=== PATIENT | female | born 1955 | race African-American/Black ===

== ENCOUNTER → 2019-08-20 | Outpatient (CLI) | payer MEDICARE ==
--- NOTE | 2019-08-20 17:40 | RAD ---
DATE: 08/20/2019 EXAM: MAMMO STEVEN SCREENING BILATERAL HISTORY: Routine screening COMPARISON: 09/26/2017, 06/09/2016, 12/26/2014 mammographic exams performed at an outside facility This study was interpreted with the benefit of Computerized Aided Detection (CAD). Breast Density: SCATTERED The breast parenchyma shows scattered fibroglandular densities. Breast parenchyma level B. FINDINGS: No suspicious calcifications, masses, or distortion. Small masses are suggested but stable. Benign calcifications are stable. IMPRESSION: Stable BI-RADS CATEGORY: 1 NEGATIVE RECOMMENDED FOLLOW-UP: 12M 12 MONTH FOLLOW-UP PQRS compliance statement: Patient information was entered into a reminder system with a target due date for the next mammogram. Mammography is a sensitive method for finding small breast cancers, but it does not detect them all and is not a substitute for careful clinical examination. A negative mammogram does not negate a clinically suspicious finding and should not result in delay in biopsying a clinically suspicious abnormality. "Our facility is accredited by the [employer]ammography [employer]."
== END | disposition home or self-care (01) ==
LOC: MAMMO 07:47
PROVIDERS: ATTEND Family Medicine
DX: Z12.31 Encounter for screening mammogram for malignant neoplasm of breast (principal); N64.89 Other specified disorders of breast
CPT/HCPCS: 77063; 77067

== ENCOUNTER 2019-09-13 08:00 | Emergency (ER) | payer MEDICARE ==
[~2019-09-13] VITALS: Ht 162.6 cm; Wt 77.0 kg
--- NOTE | 2019-09-13 08:37 | PHYS DOC ---
Past Medical History Past Medical History: No Pertinent History Past Surgical History: Appendectomy, Hysterectomy, Other Additional Past Surgical Histo: SMALL INTESTINE, R SHOULDER, Alcohol Use: Heavy Additional Information: DRINKS ABOUT A 6 PACK TO 12 PACK ON A GOOD DAY. PT REPORTS SHE DRINKS BEER DAILY. Adult General Chief Complaint Chief Complaint: MECHANICAL FALL HPI HPI Patient is a 64 year old female who presented to ER today for evaluation of headache after she fell down and hit her head on hard wood floor about 5 days ago. She denies any loss of consciousness. Patient denies any neck pain, no extremity pain, no back pain, no shoulder pain. He denies any nausea vomiting. She denies any pelvic pain. Patient called her doctor today about it who told her to come to ER for evaluation. All other ROS is negative unless otherwise noted in HPI Review of Systems Review of Systems See above Current Medications Current Medications Current Medications Medications (Trade) Dose Ordered Sig/Leilani Start Time Stop Time Status Last Admin Dose Admin Acetaminophen (Tylenol) 1,000 mg 1X ONCE 09/13/19 09:30 09/13/19 09:31 DC 09/13/19 10:08 1,000 MG Ibuprofen (Motrin) 800 mg 1X ONCE 09/13/19 09:30 09/13/19 09:31 DC 09/13/19 10:08 800 MG Allergies Allergies Allergies Coded Allergies Type Severity Reaction Last Updated Verified No Known Drug Allergies 09/13/19 No Physical Exam Physical Exam See above Constitutional: Well developed, well nourished, no acute distress, non-toxic appearance. [] HENT: Normocephalic, atraumatic, bilateral external ears normal, oropharynx moist, no oral exudates, nose normal. [] Eyes: PERRLA, EOMI, conjunctiva normal, no discharge. [] Neck: Normal range of motion, no tenderness, supple, no stridor. [] Cardiovascular:Heart rate regular rhythm, no murmur [] Lungs & Thorax: Bilateral breath sounds clear to auscultation [] Abdomen: Bowel sounds normal, soft, no tenderness, no masses, no pulsatile masses. [] Skin: Warm, dry, no erythema, no rash. [] Back: No tenderness, no CVA tenderness. [] Extremities: No tenderness, no cyanosis, no clubbing, ROM intact, no edema. [] Neurologic: Alert and oriented X 3, normal motor function, normal sensory function, no focal deficits noted. [] Psychologic: Affect normal, judgement normal, mood normal. [] Current Patient Data Vital Signs Vital Signs Date Time Temp Pulse Resp B/P (MAP) Pulse Ox O2 Delivery O2 Flow Rate FiO2 09/13/19 10:00 70 14 98 09/13/19 08:12 98.6 179/116 (137) Room Air 98.6 EKG EKG [] Radiology/Procedures Radiology/Procedures [][facility] [address] [place] [address] IMAGING REPORT Signed PATIENT: SHAISTA WOODY ACCOUNT: [id number] : 1955 LOCATION: ER AGE: 64 SEX: F EXAM STATUS: REG ER ORD. PHYSICIAN: NAVEED LOPEZ DO REASON: fell 5 days ago, hit head on hardwood floor, having headache since PROCEDURE: CT HEAD WO CONTRAST EXAM: Head CT without contrast. HISTORY: Fall. Headache. TECHNIQUE: Computed tomographic images of the head were obtained without contrast. *One or more of the following individualized dose reduction techniques were utilized for this examination: 1. Automated exposure control. 2. Adjustment of the mA and/or kV according to patient size. 3. Use of iterative reconstruction technique. COMPARISON: None. FINDINGS: There is no acute or subacute extra-axial or intraparenchymal hemorrhage. There is no mass effect or midline shift. There is no hydrocephalus. There are extensive areas of hypodensity within the cerebral white matter, a nonspecific finding which is most commonly due to chronic small vessel disease. There is mild age-appropriate cerebral volume loss. There is a mucous retention cyst or polyp measuring approximately 1.2 cm within the left ethmoid sinus. There is evidence of lens surgery. The mastoid air cells are clear. There is no suspicious calvarial lesion. IMPRESSION: 1. No acute intracranial finding. 2. Bilateral cerebral white matter changes, likely due to chronic small vessel disease. Electronically signed by: Oma Carrion MD (09/13/2019 9:03 AM) [facility] [place] and SIGNED BY: OMA CARRION MD DATE: 09/13/19 0903 Course & Med Decision Making Course & Med Decision Making Pertinent Labs and Imaging studies reviewed. (See chart for details) [] Dragon Disclaimer Dragon Disclaimer This electronic medical record was generated, in whole or in part, using a voice recognition dictation system. Departure Departure Impression: Primary Impression: Head contusion Disposition: 01 HOME, SELF-CARE Condition: STABLE Referrals: DICK PEREZ MD (PCP) follow up with your doctor next week as needed. Patient Instructions: Head Injury, Adult Additional Instructions: Thank you for visiting our Emergency Department. We appreciate you trusting us with your care. If any additional problems come up don't hesitate to return to visit us. Please follow up with your primary care provider so they can plan additional care if needed and know about the problem that you had. If symptoms worsen come back to the Emergency Department. Any concerning symptoms that start such as chest pain, shortness of air, weakness or numbness on one side of the body, running high fevers or any other concerning symptoms return to the ER. NAVEED LOPEZ DO Sep 13, 2019 08:37
--- NOTE | 2019-09-13 09:06 | RAD ---
EXAM: Head CT without contrast. HISTORY: Fall. Headache. TECHNIQUE: Computed tomographic images of the head were obtained without contrast. *One or more of the following individualized dose reduction techniques were utilized for this examination: 1. Automated exposure control. 2. Adjustment of the mA and/or kV according to patient size. 3. Use of iterative reconstruction technique. COMPARISON: None. FINDINGS: There is no acute or subacute extra-axial or intraparenchymal hemorrhage. There is no mass effect or midline shift. There is no hydrocephalus. There are extensive areas of hypodensity within the cerebral white matter, a nonspecific finding which is most commonly due to chronic small vessel disease. There is mild age-appropriate cerebral volume loss. There is a mucous retention cyst or polyp measuring approximately 1.2 cm within the left ethmoid sinus. There is evidence of lens surgery. The mastoid air cells are clear. There is no suspicious calvarial lesion. IMPRESSION: 1. No acute intracranial finding. 2. Bilateral cerebral white matter changes, likely due to chronic small vessel disease. Electronically signed by: Oma Fall MD (09/13/2019 9:03 AM) [facility] [place]
[2019-09-13] MEDS ORDERED: ACETAMINOPHEN 500 MG TABLET PO ONE (09:30)
[2019-09-13] MEDS ORDERED: IBUPROFEN 400 MG TABLET. PO ONE (09:30)
[2019-09-13 10:00] VITALS: BP 159/88
== END 2019-09-13 10:09 | disposition home or self-care (01) ==
LOC: ER 08:00
DX: S00.83XA Contusion of other part of head, initial encounter (principal); F10.10 Alcohol abuse, uncomplicated; Z90.89 Acquired absence of other organs; Z90.710 Acquired absence of both cervix and uterus; Z98.890 Other specified postprocedural states; W18.39XA Other fall on same level, initial encounter; Y93.89 Activity, other specified; Y92.89 Other specified places as the place of occurrence of the external cause; Y99.8 Other external cause status
CPT/HCPCS: 70450; 99284

== ENCOUNTER 2020-01-29 09:26 | Emergency (ER) | payer MEDICARE ==
[~2020-01-29] VITALS: Ht 162.6 cm; Wt 77.0 kg
[2020-01-29 09:48] VITALS: BP 114/78
[2020-01-29] MEDS ORDERED: FAMO-63 PO (10:12)
[2020-01-29] MEDS ORDERED: PRED20TA PO (10:12)
[2020-01-29] MEDS ORDERED: DIPH25CA58 PO (10:12)
--- NOTE | 2020-01-29 10:13 | PHYS DOC ---
Past Medical History Past Medical History: No Pertinent History Past Surgical History: Appendectomy, Hysterectomy, Other Additional Past Surgical Histo: SMALL INTESTINE, R SHOULDER, Smoking Status: Current Every Day Smoker Alcohol Use: Heavy General Adult EDM: Chief Complaint: ALLERGIC REACTION HPI: HPI: Patient is a 64 year old [f__sex] who presents with [] Review of Systems: Review of Systems: Constitutional: Denies fever or chills. [] Eyes: Denies change in visual acuity. [] HENT: Denies nasal congestion or sore throat. [] Respiratory: Denies cough or shortness of breath. [] Cardiovascular: Denies chest pain or edema. [] GI: Denies abdominal pain, nausea, vomiting, bloody stools or diarrhea. [] : Denies dysuria. [] Musculoskeletal: Denies back pain or joint pain. [] Integument: Denies rash. [] Neurologic: Denies headache, focal weakness or sensory changes. [] Endocrine: Denies polyuria or polydipsia. [] Lymphatic: Denies swollen glands. [] Psychiatric: Denies depression or anxiety. [] Heart Score: Risk Factors: Risk Factors: DM, Current or recent (<one month) smoker, HTN, HLP, family history of CAD, obesity. Risk Scores: Score 0 - 3: 2.5% MACE over next 6 weeks - Discharge Home Score 4 - 6: 20.3% MACE over next 6 weeks - Admit for Clinical Observation Score 7 - 10: 72.7% MACE over next 6 weeks - Early Invasive Strategies Allergies: Allergies: Allergies Coded Allergies Type Severity Reaction Last Updated Verified No Known Drug Allergies 09/13/19 No Physical Exam: PE: Constitutional: Well developed, well nourished, no acute distress, non-toxic a ppearance. [] HENT: Normocephalic, atraumatic, bilateral external ears normal, oropharynx moist, no oral exudates, nose normal. [] Eyes: PERRLA, EOMI, conjunctiva normal, no discharge. [] Neck: Normal range of motion, no tenderness, supple, no stridor. [] Cardiovascular:Heart rate regular rhythm, no murmur [] Lungs & Thorax: Bilateral breath sounds clear to auscultation [] Abdomen: Bowel sounds normal, soft, no tenderness, no masses, no pulsatile masses. [] Skin: Warm, dry, no erythema, no rash. [] Back: No tenderness, no CVA tenderness. [] Extremities: No tenderness, no cyanosis, no clubbing, ROM intact, no edema. [] Neurologic: Alert and oriented X 3, normal motor function, normal sensory function, no focal deficits noted. [] Psychologic: Affect normal, judgement normal, mood normal. [] Current Patient Data: Vital Signs: Vital Signs Date Time Temp Pulse Resp B/P (MAP) Pulse Ox O2 Delivery O2 Flow Rate FiO2 01/29/20 09:48 98.0 114 20 114/78 (90) 98 Room Air 98.0 EKG: EKG: [] Radiology/Procedures: Radiology/Procedures: [] Course & Med Decision Making: Course & Med Decision Making Pertinent Labs and Imaging studies reviewed. (See chart for details) [] Dragon Disclaimer: Dragon Disclaimer: This electronic medical record was generated, in whole or in part, using a voice recognition dictation system. Departure Departure Impression: Primary Impression: Angioedema Qualified Codes: T78.3XXA - Angioneurotic edema, initial encounter Disposition: HOME, SELF-CARE Condition: STABLE Referrals: DICK PEREZ MD (PCP) Patient Instructions: Angioedema, [id number] Additional Instructions: Discontinue Lisinopril. Please follow closely with your doctor for re- evaluation and for change in your blood pressure medications. Scripts Famotidine (PEPCID) 20 Mg Tablet 20 MG PO BID for 5 Days, #10 TAB Prov: DICK JJ DO 01/29/20 Diphenhydramine Hcl (BENADRYL) 25 Mg Capsule 1 CAP PO Q4-6HRS PRN for swelling, #30 CAP 0 Refills Prov: DICK JJ DO 01/29/20 Prednisone (PREDNISONE) 20 Mg Tablet 2 TAB PO DAILY, #8 TAB Start this prescription tomorrow, Tue01/30/20 Prov: DICK JJ DO 01/29/20 DICK JJ DO Jan 29, 2020 10:13
[2020-01-29] MEDS ORDERED: FAMOTIDINE 20 MG TABLET. PO ONE (10:15)
[2020-01-29] MEDS ORDERED: diphenhydrAMINE HCL 25 MG CAPSULE PO ONE (10:15)
[2020-01-29] MEDS ORDERED: DEXAMETHASONE SOD PHOS 20 MG/5 ML VIAL. IM ONE (10:15)
== END 2020-01-29 10:20 | disposition home or self-care (01) ==
LOC: ER 09:26
DX: T78.3XXA Angioneurotic edema, initial encounter (principal); F17.200 Nicotine dependence, unspecified, uncomplicated; F10.20 Alcohol dependence, uncomplicated; Y90.9 Presence of alcohol in blood, level not specified
CPT/HCPCS: 96372; 99283; J1100; Q0163

== ENCOUNTER → 2021-01-16 | Outpatient (CLI) | payer MEDICARE ==
[~2021-01-16] MED LIST: DIPH25CA58 PO; FAMO-63 PO; PRED20TA PO
--- NOTE | 2021-01-16 10:00 | KCIC ---
INDICATION: Screening for osteopenia/osteoporosis. Postmenopausal evaluation. COMPARISON: None. TECHNIQUE: Bone densitometry was performed through the lumbar spine and proximal femur. IMPRESSION: Lumbar Spine: BMD: 1.04 T-Score: -0.1 Range: Normal Proximal Femur: BMD: 0.69 T-Score: -2.0 Range: Osteopenic World Health Organization Criteria for Bone Density: T-Score: > -1.0: Normal Range < -1.0 to -2.5: Osteopenic Range < -2.5: Osteoporotic Range Electronically signed by: Fabio Abdalla MD (01/16/2021 9:58 AM) [id number]
--- NOTE | 2021-01-16 12:01 | KCIC ---
EXAM: Bilateral digital screening mammogram with tomosynthesis. HISTORY: 65-year-old female presents for screening mammography. TECHNIQUE: Full-field digital craniocaudal and mediolateral oblique 2D and 3D tomosynthesis images of both breasts are obtained for evaluation. Computer aided detection was applied. COMPARISON: 08/20/2019 BREAST PARENCHYMAL DENSITY: Level B - Scattered fibroglandular densities. FINDINGS: There is no new suspicious mass, microcalcification or region of architectural distortion. There are stable areas of benign nodularity within both breasts. IMPRESSION: BI-RADS Category 2: Benign finding(s). RECOMMENDATION: Annual mammography is recommended. If your mammogram demonstrates that you have dense breast tissue, which could hide abnormalities, and if you have other risk factors for breast cancer that have been identified, you might benefit from s upplemental screening tests that may be suggested by your ordering physician. Dense breast tissue, i n and of itself, is a relatively common condition. This information is not provided to cause undue c oncern, but rather to raise your awareness and to promote discussion with your physician regarding th e presence of other risk factors, in addition to dense breast tissue. A report of your mammography re sults will be sent to you and your physician. You should contact your physician if you have any ques tions or concerns regarding this report. Mammography is a sensitive method for finding small breast cancers, but it does not detect them all a nd is not a substitute for careful clinical examination. A negative mammogram does not negate a clin ically suspicious finding and should not result in delay in biopsying a clinically suspicious abnorma lity. PQRS compliance statement - Patient information was entered into a reminder system with a target due date for the next mammogram. "Our facility is accredited by the [employer]amm[employer]." Electronically signed by: Oma Fall MD (01/16/2021 11:58 AM) [email or web address]
== END ==
LOC: KCIC MAMMO 08:09
PROVIDERS: ATTEND Family Medicine
DX: Z12.31 Encounter for screening mammogram for malignant neoplasm of breast (principal); N95.1 Menopausal and female climacteric states; N95.9 Unspecified menopausal and perimenopausal disorder
CPT/HCPCS: 77063; 77067; 77080

== ENCOUNTER → 2021-01-27 | Outpatient (CLI) | payer MEDICARE ==
--- NOTE | 2021-01-27 13:54 | KCIC ---
CT of the chest, low dose lung cancer screening protocol Indication: [Lung cancer screening protocol, with 30 pack-year history of smoking. Comparison study: [None] Technique: Multidetector CT imaging of the chest was performed without the administration of contrast using a low-dose lung cancer screening protocol Findings: There is a 2 mm noncalcified nodule in the apical left lower lobe (thin axial image 106). There is a 2 mm nodule in the right upper lobe (axial image 76). Calcified granuloma noted, right upper lobe. Calcified right hilar lymph nodes noted. Heart size is normal. No significant pericardial effusion is seen. No pathologic mediastinal adenopa thy is identified. No focal consolidation or infiltrate is seen. No pneumothorax or pleural effusion is seen. No acute osseous abnormality is identified. Limited visualization of the upper abdomen demon strates no acute abnormality. Impression: 1. 2 mm nodule, left apical left lower lobe. 2 mm noncalcified nodule, right upper lobe. Lung RADS category 2. Estimated chance of malignancy less than 1%. Repeat low-dose CT chest recommen ded in 12 months. 2. No other acute cardiopulmonary process 3. Changes of prior granulomatous disease CT DOSING PQRS STATEMENT: One or more of the following individualized dose reduction techniques were utilized for this examinat ion: 1. Automated exposure control 2. Adjustment of the mA and/or kV according to patient size 3. Use of iterative reconstruction technique Electronically signed by: Lopez Aguilar MD (01/27/2021 1:52 PM) [id number]
== END ==
LOC: KCIC CT 08:15
PROVIDERS: ATTEND Family Medicine
DX: Z12.2 Encounter for screening for malignant neoplasm of respiratory organs (principal); R91.1 Solitary pulmonary nodule; F17.210 Nicotine dependence, cigarettes, uncomplicated
CPT/HCPCS: 71271